=== PATIENT | female | born 1960 | race African-American/Black ===

== ENCOUNTER 2018-02-01 00:48 | Emergency (ER) | payer OTHER ==
[~2018-02-01] VITALS: Ht 180.3 cm; Wt 78.0 kg
[2018-02-01 01:02] VITALS: BP 115/64
== END 2018-02-01 01:30 | disposition left against medical advice (07) ==
LOC: ER 00:48
DX: M79.644 Pain in right finger(s) (principal); Z53.21 Procedure and treatment not carried out due to patient leaving prior to being seen by health care provider